=== PATIENT | female | born 1990 | race African-American/Black ===

== ENCOUNTER → 2025-03-09 | Outpatient (CLI) | payer OTHER ==
[2025-03-09 13:27] LABS: PLATELET COUNT, AUTOMATED 283 10^3/uL (150-450)
[2025-03-09 14:05] LABS: FREE T4 1.25 NG/DL (0.89-1.76)
[2025-03-09 14:34] LABS: Trichomonas vaginalis (AMP) NOT DETECTED (NEGATIVE)
[2025-03-09 14:57] LABS: GC DNA AMPLIFICATION NEGATIVE (NEGATIVE)
[2025-03-09 15:36] LABS: HIV 1&2 SCREEN NEGATIVE (NEGATIVE)
[2025-03-09 15:45] LABS: HEPATITIS C VIRUS ABY INDEX < 0.02 INDEX (<0.8)
== END ==
LOC: M PLALAB 09:24
PROVIDERS: ATTEND Obstetrics & Gynecology
DX: Z34.81 Encounter for supervision of other normal pregnancy, first trimester (principal)

== ENCOUNTER 2025-05-06 07:00 | Outpatient (RCR) | payer OTHER | END 2025-05-13 | LOC: M PT 07:00 | PROVIDERS: ATTEND Obstetrics & Gynecology | DX: N39.0 Urinary tract infection, site not specified (principal) ==

== ENCOUNTER → 2025-05-13 | Outpatient (CLI) | payer OTHER | LOC: M WHC 07:38 | PROVIDERS: ATTEND Nurse Practitioner Family | DX: Z34.80 Encounter for supervision of other normal pregnancy, unspecified trimester (principal) ==

== ENCOUNTER 2025-06-07 11:24 | Outpatient (RCR) | payer OTHER | END 2025-06-12 | LOC: M PT 11:24 | PROVIDERS: ATTEND Obstetrics & Gynecology | DX: O23.40 Unspecified infection of urinary tract in pregnancy, unspecified trimester (principal); N39.0 Urinary tract infection, site not specified; Z3A.00 Weeks of gestation of pregnancy not specified ==